=== PATIENT | male | born 1995 | race Caucasian/White ===

== ENCOUNTER → 2018-09-20 | Outpatient (CLI) | payer OTHER ==
--- NOTE | 2018-09-23 08:28 | REP ---
Three-phase bone scan of the legs: History: Bilateral lower leg pain. Technique: 22.0 mCi of technetium 99m MDP is injected and standard three-phase imaging was acquired. Scintigraphic findings: Anterior and posterior flow images are normal. Blood pool images show no localized area of regional hyperemia in the soft tissues of the lower extremities. Delayed scan images demonstrate normal tracer localization to the tibia and fibula. There is no scintigraphic evidence to suggest stress periostitis or stress fracture. Images are otherwise unremarkable. Impression: Negative three-phase bone scanning of the lower extremities. Electronically Signed by Panfilo Boss MD 09/23/2018 11:20 A
== END ==
LOC: M RAD 10:39
PROVIDERS: ATTEND Physician Assistant
DX: M79.669 Pain in unspecified lower leg (principal)
CPT/HCPCS: 78315; A9503